=== PATIENT | male | born 1950 | race Hispanic/Latino ===

== ENCOUNTER 2018-08-24 08:11 | Day surgery (SDC) | payer OTHER ==
[2018-08-23 16:08] VITALS: BP 146/78
[2018-08-24] VITALS (17 sets, daily range): BP systolic 105–147; BP diastolic 64–94
[~2018-08-24] VITALS: Ht 182.9 cm; Wt 98.2 kg
[~2018-08-24 08:11] MED LIST: ACET1TAB25 PO; AMLO10TA7 PO; ATOR40TA71 PO; CARV25TA PO; CREON12 PO; GLIP10TA9 PO; LACT1CAP90 PO; LOSA100T58 PO; RANI150C4 PO; SPIR25TA6 PO
[2018-08-24] MEDS: CLINDAMYCIN 900 MG/D5% WATER 50 ML IV SCH ×2 (09:00→12:50)
[2018-08-24] MEDS ORDERED: SODIUM CHLORIDE 0.9% 1000ML 1,000 ML IV ONE (09:30)
[2018-08-24] MEDS ORDERED: ROCURONIUM 10MG/1ML SYR 10 MG/ML ML ONE (09:54)
[2018-08-24] MEDS ORDERED: GLYCOPYRROLATE 1 MG/5 ML SYRINGE ONE (09:54)
[2018-08-24] MEDS ORDERED: LIDOCAINE PF 2% 5ML ABBOJECT ONE (09:54)
[2018-08-24] MEDS ORDERED: NEOSTIGMINE 5MG/5ML SYR IV ONE (09:54)
[2018-08-24] MEDS ORDERED: MIDAZOLAM HCL 1 MG/ML 2ML VIAL ONE (09:54)
[2018-08-24] MEDS ORDERED: PROPOFOL 10 MG/ML 20ML VIAL IV ONE (09:54)
[2018-08-24] MEDS ORDERED: FENTANYL CITRATE PF 50 MCG/1 ML 2ML VIAL ONE (09:55)
[2018-08-24] MEDS ORDERED: EPINEPHRINE 1 MG/ML 30ML VIAL IJ ONE (10:35)
[2018-08-24] MEDS ORDERED: SUCCINYLCHOLINE 200MG/10ML SYR ONE (12:28)
[2018-08-24] MEDS ORDERED: KETOROLAC TROMETHAMINE 30MG/ML ONE (15:12)
[2018-08-24] MEDS ORDERED: ONDANSETRON HCL 4 MG/2 ML VIAL ONE (15:13)
[2018-08-24] MEDS ORDERED: NAPR-1192 PO (15:26)
[2018-08-24] MEDS ORDERED: HYDR-4457 PO (15:26)
[2018-08-24] MEDS ORDERED: CLIN300C3 PO (15:26)
[2018-08-24] MEDS ORDERED: IPRATROPIUM/ALBUTEROL SULFATE 3 ML SOLUTION IH ONE (15:42)
--- NOTE | 2018-08-24 16:42 | NUR ---
RECEIVE PT RECEIVED FROM PACU VIA STRETCHER AWAKE ALERT ORIENTED X3. STABLE. NO COMPLAINTS MADE. NOT IN ANY APPARENT DISTRESS. DRESSINGS X4 TO LEFT SHOULDER DRY AND INTACT, SITE NO BLEEDING NO HEMATOMA NOTED, SLING TO LEFT ARM IN PLACE, SENSATION INTACT, ABLE TO MOVE FINGERS, CAPILLARY REFILLS BRISK. CALL [facility] WITHIN REACH, WILL CALL TO COME IN TO ROOM.
--- NOTE | 2018-08-24 17:17 | NUR ---
DISCHARGE PT DISCHARGED VIA WHEELCHAIR WITH . PT STABLE. NOT IN ANY APPARENT DISTRESS. NO COMPLAINTS MADE. DRESSINGS REMAIN DRY AND INTACT, NO OOZING NO HEMATOMA NOTED TO SITE. LEFT ARM REMAINS THE SAME FROM ARRIVAL TO UNIT, SLING IN PLACE. DISCHARGE INSTRUCTIONS GIVEN AND PT, VERBALIZED UNDERSTANDING.
== END 2018-08-24 17:17 | disposition home or self-care (01) ==
LOC: DAH 08:11
PROVIDERS: ATTEND Orthopaedic Surgery
DX: S46.212A Strain of muscle, fascia and tendon of other parts of biceps, left arm, initial encounter (principal); M75.102 Unspecified rotator cuff tear or rupture of left shoulder, not specified as traumatic; M19.012 Primary osteoarthritis, left shoulder; M75.42 Impingement syndrome of left shoulder; Y93.9 Activity, unspecified; Y99.9 Unspecified external cause status; G89.29 Other chronic pain; I10 Essential (primary) hypertension; K21.9 Gastro-esophageal reflux disease without esophagitis; E11.9 Type 2 diabetes mellitus without complications; E78.00 Pure hypercholesterolemia, unspecified; Z87.891 Personal history of nicotine dependence; Z79.899 Other long term (current) drug therapy; Z88.0 Allergy status to penicillin; X58.XXXA Exposure to other specified factors, initial encounter; Y93.89 Activity, other specified; Y92.89 Other specified places as the place of occurrence of the external cause; Y99.8 Other external cause status; G47.30 Sleep apnea, unspecified
CPT/HCPCS: 23430; 29822; 29824; 29826; 29827; 64415; 82948 ×2; 94640; A4565; A4600; A4649 ×5; A4930; A6204; C1713 ×2; G0168; J0171; J0330; J1885; J2001; J2250; J2405; J2704; J2710; J3010; J3490 ×2; J7030 ×2

== ENCOUNTER 2019-09-09 12:00 | Inpatient (IN) | payer OTHER ==
[~2019-09-09] VITALS: Ht 181.6 cm; Wt 94.4 kg
[2019-09-09 10:03] LABS: BASOPHILS % (AUTO) 0.3 % (0.0-5.0); EOSINOPHILS % (AUTO) 1.7 % (0.0-8.0); HEMATOCRIT 38.1 % (42-54); LYMPHOCYTES % (AUTO) 25.4 % (21.0-51.0); MEAN CORPUSCULAR HEMOGLOBIN 31.3 pg (27.0-33.0); MEAN CORPUSCULAR HGB CONC 33.6 g/dL (32.0-36.0); MEAN CORPUSCULAR VOLUME 93.2 fL (79-99); MONOCYTES % (AUTO) 11.5 % (3.0-13.0); NEUTROPHILS % (AUTO) 60.7 % (40.0-77.0); PLATELET COUNT (AUTO) 179 K/uL (130-400); RED BLOOD CELL COUNT(AUTO) 4.09 MIL/uL (4.50-6.20); RED CELL DISTRIBUTION WIDTH 12.2 % (11.0-15.5); WHITE BLOOD COUNT (AUTO) 7.8 K/uL (4.8-10.8)
[2019-09-09 10:05] LABS: APPEARANCE,URINE Clear (CLEAR); BILIRUBIN,URINE Negative (NEGATIVE); COLOR,URINE Dark Yellow (YELLOW); GLUCOSE, URINE (UA) 250 mg/dL (NEGATIVE); KETONES,URINE Trace mg/dL (NEGATIVE); LEUKOCYTE ESTERASE ,URINE Negative (NEGATIVE); NITRATE,URINE Negative (NEGATIVE); OCCULT BLOOD,URINE Negative (NEGATIVE); PROTEIN,URINE POS 1+ mg/dL (NEGATIVE)
[2019-09-09 10:13] LABS: CREATININE 1.7 mg/dL (0.5-1.5); POTASSIUM 3.9 mmol/L (3.5-5.1)
[2019-09-09 10:14] LABS: INR 0.99 (0.85-1.15); PROTHROMBIN TIME 10.7 SEC (9.6-11.6)
[2019-09-09 10:26] LABS: BACTERIA,URINE Rare /HPF (None Seen); MUCUS,URINE Rare LPF (None Seen); RBC,URINE 0-1 /HPF (0-1); SQUAMOUS EPITHELIAL CELL,UR Rare /HPF (0-2); WBC,URINE 0-1 /HPF (0-1)
[2019-09-09 11:33] VITALS: BP 134/80
[~2019-09-09 12:00] MED LIST changes: -ACET1TAB25 PO; +AMLO-258 PO; -AMLO10TA7 PO; -ATOR40TA71 PO; -CREON12 PO; -LACT1CAP90 PO; -RANI150C4 PO
--- NOTE | 2019-09-10 10:01 | NUR ---
RE: ABNORMAL LABS INFORMED DR RICHARD REGARDING CREAT 1.7, BUN 17. NO NEW ORDERS, OK TO PROCEED WITH SURGERY PER DR RICHARD.
[2019-09-10] MEDS ORDERED: BRIM5DRO4 OU (12:08)
[2019-09-10] MEDS ORDERED: SILD100T PO (12:08)
[2019-09-10] MEDS ORDERED: LATA7.5D OU (12:08)
[2019-09-10] MEDS ORDERED: ATOR40TA69 PO (12:08)
[2019-09-10] MEDS ORDERED: FLUT16H NASAL (12:08)
[2019-09-10] MEDS ORDERED: LEVO50TA11 PO (12:08)
[2019-09-10] MEDS ORDERED: LISI1TAB51 PO (12:08)
[2019-09-10] MEDS ORDERED: CARB15DR OU (12:08)
[2019-09-11] VITALS (21 sets, daily range): BP systolic 101–146; BP diastolic 63–88
[2019-09-11] MEDS ORDERED: SODIUM CHLORIDE 0.9% 1000ML 1,000 ML IV ONE (07:51)
[2019-09-11] MEDS: CLINDAMYCIN 900 MG/D5% WATER 50 ML IV SCH ×3 (08:00→20:56)
--- NOTE | 2019-09-11 09:20 | NUR ---
POTENTIAL FOR INFECTION: CLIPPED RIGHT LEG / RIGHT KNEE PER LINA HAYNES, FOLLOWED BY WIPING WITH MCKENNA: 2% CHLORHEXIDINE GLUCONATE CLOTH PATIENTS PRE-OP SKIN PREP.
[2019-09-11] MEDS ORDERED: CLINDAMYCIN PHOSPHATE 150 MG/ML 6ML VIAL ONE (10:19)
[2019-09-11] MEDS ORDERED: METOCLOPRAMIDE 10 MG/2 ML VIAL ONE (10:20)
[2019-09-11] MEDS ORDERED: ACETAMINOPHEN EXTRA STRENGTH 500 MG TABLET ONE (10:20)
[2019-09-11] MEDS ORDERED: KETOROLAC TROMETHAMINE 15MG/ML ONE (10:20)
[2019-09-11] MEDS ORDERED: CELECOXIB 200 MG CAP ONE (10:20)
--- NOTE | 2019-09-11 10:20 | NUR ---
CONSULT: DR. ALBINO RICHARD MADE AWARE OF PATIENT STOPPED TAKING PLAVIX 75 MG AND ASPIRIN [address] RICHARD SPOKE TO PATIENT AND NO FURTHER ORDERS GIVEN AT PRESENT TIME.
[2019-09-11] MEDS ORDERED: LIDOCAINE PF 2% 5ML ABBOJECT ONE (10:44)
[2019-09-11] MEDS ORDERED: DEXAMETHASONE SOD PHOSPHATE 10MG/ML 1ML VIAL ONE (10:44)
[2019-09-11] MEDS ORDERED: PROPOFOL 10 MG/ML 20ML VIAL IV ONE (10:44)
[2019-09-11] MEDS ORDERED: SUCCINYLCHOLINE 200MG/10ML SYR ONE (10:45)
[2019-09-11] MEDS ORDERED: MIDAZOLAM HCL 1 MG/ML 2ML VIAL ONE (10:45)
[2019-09-11] MEDS ORDERED: ROCURONIUM 10MG/1ML SYR 10 MG/ML ML ONE (10:45)
[2019-09-11] MEDS ORDERED: FENTANYL CITRATE PF 50 MCG/1 ML 2ML VIAL ONE ×2 (10:45→12:41)
[2019-09-11] MEDS ORDERED: ONDANSETRON HCL 4 MG/2 ML VIAL ONE (10:45)
[2019-09-11] MEDS ORDERED: TRANEXAMIC ACID 1000MG/10ML ONE ×2 (10:51→13:32)
[2019-09-11] MEDS ORDERED: ROPIVACAINE 0.5% 5MG/ML 30ML IJ ONE (10:54)
[2019-09-11] MEDS ORDERED: EPHEDRINE SULFATE 50 MG/ML AMPULE ONE (11:05)
[2019-09-11] MEDS ORDERED: PHENYLEPHRINE HCL 10 MG/ML 1ML VIAL IV ONE (11:47)
[2019-09-11] MEDS ORDERED: LIDOCAINE HCL-MPF 1% 2ML VIAL IV PRN (12:30)
[2019-09-11] MEDS ORDERED: TRAMADOL HCL 50 MG TABLET PO PRN (12:30)
[2019-09-11] MEDS ORDERED: OXYCODONE HCL 5 MG TAB PO PRN (12:30)
[2019-09-11] MEDS ORDERED: KETOROLAC TROMETHAMINE 15MG/ML IV PRN (12:30)
[2019-09-11] MEDS ORDERED: DiphenhydrAMINE HCL 50 MG/ML VIAL IVP PRN (12:30)
[2019-09-11] MEDS ORDERED: POTASSIUM CHLORIDE 10% ELIXIR 20 MEQ/15 ML UDCUP PO PRN (12:30)
[2019-09-11] MEDS ORDERED: POTASSIUM CHLORIDE 20MEQ/100ML 100 ML IV PRN (12:30)
[2019-09-11] MEDS ORDERED: FERROUS FUMARATE 324 MG TABLET PO PRN (12:30)
[2019-09-11] MEDS: ACETAMINOPHEN EXTRA STRENGTH 500 MG TABLET PO SCH ×3 (12:30→22:28)
[2019-09-11] MEDS ORDERED: ONDANSETRON HCL 4 MG/2 ML VIAL IVP PRN (12:30)
[2019-09-11] MEDS ORDERED: TEMAZEPAM 15 MG CAPSULE PO PRN (12:30)
[2019-09-11] MEDS ORDERED: KETOROLAC TROMETHAMINE 30MG/ML ONE (12:40)
--- NOTE | 2019-09-11 14:53 | NUR ---
DC PLAN VISITED WITH PATIENT. FIRST TIME SLEEPY POST PROCEDURE. CALLED AND SON NO ANSWER. VISITED WITH PATIENT ABLE TO ANSWER QUESTIONS. LIVES WITH SPOUSE. SEMI INDEPENDENT ABLE TO PERFORM ADL'S. PATIENT HAS WALKER WITH WHEELS, WHEEL CHAIR AND CANE AT HOME. GAVE CONSENT TO TALK TO [facility] AND HOME HEALTH ASSIGNED BY [facility]. EXPLAINED THAT WE WILL ASK FOR ANOTHER WALKER WITH NO WHEELS IN CASE DE DOES NOT APPROVE CAN GET FEET REPLACEMENT AT [facility]. FAXED INFO TO [facility] FOR HOME HEALTH AND DME STANDARD WALKER NO WHEELS AND 3 IN 1 CHAIR. Addendum: 09/11/19 at 1456 by MIRZA HICKS RN CM Amended: Links added.
[2019-09-11] MEDS: SODIUM CHLORIDE 0.9% 1000ML 1,000 ML IV SCH (15:00)
--- NOTE | 2019-09-11 15:08 | NUR ---
DC PLAN SPOKE TO SUMA AT [place] LET HER KNOW OF REFERRAL. Addendum: 09/11/19 at 1508 by MIRZA HICKS RN CM Amended: Links added.
[2019-09-11] MEDS: INSULIN HUMULIN R 100 UNIT/ML 3ML SQ SCH ×3 (15:50→21:00)
[2019-09-11] MEDS ORDERED: CLINDAMYCIN 900 MG/D5% WATER 50 ML IV SCH (17:30)
[2019-09-11] MEDS ORDERED: ASPI-556 PO (17:38)
[2019-09-11] MEDS ORDERED: CLOP75TA14 PO (17:38)
[2019-09-11] MEDS: HYDROCHLOROTHIAZIDE 25 MG TABLET PO SCH (20:51)
[2019-09-11] MEDS: CELECOXIB 200 MG CAP PO SCH (20:52)
[2019-09-11] MEDS: ASPIRIN 81MG TAB.CHEW PO SCH (20:52)
[2019-09-11] MEDS: PREGABALIN 25 MG CAP PO SCH (20:52)
[2019-09-11] MEDS: LISINOPRIL 20 MG TABLET PO SCH (20:52)
[2019-09-11] MEDS: ATORVASTATIN CALCIUM 40 MG TABLET PO SCH (20:52)
[2019-09-11] MEDS: LATANOPROST 2.5 ML DROPS OU SCH (20:53)
[2019-09-11] MEDS: FLUTICASONE PROPIONATE 50MCG/SPRAY 16 GM BOTTLE EN SCH (20:53)
[2019-09-11] MEDS ORDERED: ASPIRIN 81 MG EC TAB PO SCH (21:00)
[2019-09-12] MEDS: SODIUM CHLORIDE 0.9% 1000ML 1,000 ML IV SCH ×2 (00:17→08:05)
[2019-09-12 03:33] VITALS: BP 127/76
[2019-09-12] MEDS: CLINDAMYCIN 900 MG/D5% WATER 50 ML IV SCH ×2 (04:07→05:00)
[2019-09-12 05:21] LABS: HEMATOCRIT 32.3 % (42-54); MEAN CORPUSCULAR HEMOGLOBIN 31.3 pg (27.0-33.0); MEAN CORPUSCULAR HGB CONC 33.4 g/dL (32.0-36.0); MEAN CORPUSCULAR VOLUME 93.6 fL (79-99); RED BLOOD CELL COUNT(AUTO) 3.45 MIL/uL (4.50-6.20); RED CELL DISTRIBUTION WIDTH 12.2 % (11.0-15.5); WHITE BLOOD COUNT (AUTO) 11.7 K/uL (4.8-10.8)
[2019-09-12] MEDS: INSULIN HUMULIN R 100 UNIT/ML 3ML SQ SCH ×4 (05:22→20:33)
[2019-09-12] MEDS: ACETAMINOPHEN EXTRA STRENGTH 500 MG TABLET PO SCH ×3 (05:41→20:25)
[2019-09-12] MEDS: LEVOTHYROXINE 50 MCG TABLET PO SCH (05:41)
[2019-09-12 05:51] LABS: CREATININE 1.3 mg/dL (0.5-1.5); POTASSIUM 3.5 mmol/L (3.5-5.1)
[2019-09-12] MEDS: CALCIUM CARBONATE 500 MG TABLET PO PRN ×2 (05:56→15:18)
[2019-09-12] MEDS: POTASSIUM CHLORIDE 20 MEQ ERTAB PO PRN ×2 (05:56→15:19)
[2019-09-12 08:15] VITALS: BP 132/74
[2019-09-12] MEDS: Carboxymethylcellulose Sodium (Refresh Tears) 1 DROP OU SCH ×2 (09:00→20:33)
[2019-09-12] MEDS: POLYETHYLENE GLYCOL 3350 17 GM POWD.PACK PO SCH (09:00)
[2019-09-12] MEDS: LOSARTAN 100 MG TABLET PO SCH (09:23)
[2019-09-12] MEDS: TAMSULOSIN HCL 0.4 MG CAP.ER.24H PO SCH (09:24)
[2019-09-12] MEDS: CLOPIDOGREL BISULFATE 75 MG TAB PO SCH (09:24)
[2019-09-12] MEDS: AMLODIPINE BESYLATE 5 MG TAB PO SCH (09:24)
[2019-09-12] MEDS: PREGABALIN 25 MG CAP PO SCH ×2 (09:24→20:26)
[2019-09-12] MEDS: CELECOXIB 200 MG CAP PO SCH ×2 (09:24→20:26)
[2019-09-12] MEDS: SPIRONOLACTONE 25 MG TAB PO SCH (09:25)
[2019-09-12] MEDS: CARVEDILOL 25 MG TABLET PO SCH (09:25)
[2019-09-12] MEDS: GLIPIZIDE 5 MG TABLET PO SCH (09:25)
[2019-09-12] MEDS: FAMOTIDINE 20MG TAB 20 MG TAB PO SCH (09:25)
[2019-09-12] MEDS: ASPIRIN 81MG TAB.CHEW PO SCH ×2 (09:26→20:27)
[2019-09-12] MEDS: FLUTICASONE PROPIONATE 50MCG/SPRAY 16 GM BOTTLE EN SCH ×2 (09:27→20:28)
--- NOTE | 2019-09-12 10:38 | NUR ---
CM Note: [facility] pending [facility] and DME approval and assign CM spoke to Emily w/[facility] received request for HH and DME standard walker no wheels and 3 in 1 chair. Currently working on pt. Pt pending approval and assign HH and DME. Aware dcp once approved. Primary nurse aware. CM to cont to follow up.
[2019-09-12 11:32] VITALS: BP 121/79
[2019-09-12 17:43] VITALS: BP 117/64
[2019-09-12] MEDS: OXYCODONE HCL 5 MG TAB PO PRN (18:03)
[2019-09-12 19:11] VITALS: BP 113/62
[2019-09-12] MEDS: LATANOPROST 2.5 ML DROPS OU SCH (20:24)
[2019-09-12] MEDS: BRIMONIDINE TARTRATE 0.2% 5 ML BOTTLE OU SCH (20:24)
[2019-09-12] MEDS: LISINOPRIL 20 MG TABLET PO SCH (20:26)
[2019-09-12] MEDS: ATORVASTATIN CALCIUM 40 MG TABLET PO SCH (20:26)
[2019-09-12] MEDS: HYDROCHLOROTHIAZIDE 25 MG TABLET PO SCH (20:26)
[2019-09-12 23:07] VITALS: BP 100/58
[2019-09-13 04:00] VITALS: BP 121/73
[2019-09-13] MEDS: ACETAMINOPHEN EXTRA STRENGTH 500 MG TABLET PO SCH ×2 (04:39→12:44)
[2019-09-13] MEDS: CLINDAMYCIN 900 MG/D5% WATER 50 ML IV SCH (05:00)
[2019-09-13] MEDS: LEVOTHYROXINE 50 MCG TABLET PO SCH (06:02)
[2019-09-13] MEDS: INSULIN HUMULIN R 100 UNIT/ML 3ML SQ SCH ×3 (07:30→16:30)
[2019-09-13 08:00] VITALS: BP 140/73
[2019-09-13] MEDS: POLYETHYLENE GLYCOL 3350 17 GM POWD.PACK PO SCH (08:36)
[2019-09-13] MEDS: CELECOXIB 200 MG CAP PO SCH (08:36)
[2019-09-13] MEDS: SPIRONOLACTONE 25 MG TAB PO SCH (08:36)
[2019-09-13] MEDS: TAMSULOSIN HCL 0.4 MG CAP.ER.24H PO SCH (08:37)
[2019-09-13] MEDS: ASPIRIN 81MG TAB.CHEW PO SCH (08:37)
[2019-09-13] MEDS: LOSARTAN 100 MG TABLET PO SCH (08:37)
[2019-09-13] MEDS: FAMOTIDINE 20MG TAB 20 MG TAB PO SCH (08:37)
[2019-09-13] MEDS: GLIPIZIDE 5 MG TABLET PO SCH (08:37)
[2019-09-13] MEDS: PREGABALIN 25 MG CAP PO SCH (08:38)
[2019-09-13] MEDS: CLOPIDOGREL BISULFATE 75 MG TAB PO SCH (08:38)
[2019-09-13] MEDS: AMLODIPINE BESYLATE 5 MG TAB PO SCH (08:38)
[2019-09-13] MEDS: CARVEDILOL 25 MG TABLET PO SCH (08:38)
[2019-09-13] MEDS: OXYCODONE HCL 5 MG TAB PO PRN (08:39)
[2019-09-13] MEDS: Carboxymethylcellulose Sodium (Refresh Tears) 1 DROP OU SCH (08:43)
[2019-09-13] MEDS: FLUTICASONE PROPIONATE 50MCG/SPRAY 16 GM BOTTLE EN SCH (08:44)
[2019-09-13] MEDS: BRIMONIDINE TARTRATE 0.2% 5 ML BOTTLE OU SCH ×2 (08:44→14:00)
--- NOTE | 2019-09-13 10:06 | NUR ---
CM Note: [facility] pending approval and assisng HH&DME CM left voicemail to Emily [email or web address] regarding pt pending approval and assisng HH&DME. Awaiting call back. Primary nurse aware. CM to cont to follow up.
--- NOTE | 2019-09-13 11:02 | NUR ---
CM Note: Approved for [employer] and [facility], pending wkr to be delivered. CM spoke to Emily. Pt has approval for [employer] and [facility] for standard walker and 3 in 1 chair. Pending [facility] for DME to be delivered. Primary nurse aware. Pt safe to dc once DME delivered at home. CM to cont to follow up.
[2019-09-13 12:00] VITALS: BP 108/66
--- NOTE | 2019-09-13 14:56 | NUR ---
DONY Note: [facility] delivered equipments CM picked up standard walker no wheels and 3 in 1 chair from [facility]. Dropped off in pt's room. Violet ELLISON aware, will inform Quintin COLLINS. Pt safe to dc today via private car once MD clear. CM to cont to follow up.
[2019-09-13 16:00] VITALS: BP 125/74
[2019-09-13] MEDS ORDERED: ASPI-1005 PO (18:00)
[2019-09-13] MEDS ORDERED: HYDR-4457 PO (18:00)
[2019-09-14] MEDS ORDERED: BISACODYL 10 MG SUPP.RECT RC PRN (12:30)
== END 2019-09-13 18:45 | disposition home health service (06) | DRG 489 ==
LOC: DAHIP 09-11 07:14 → 3CH 09-11 14:02
PROVIDERS: ADMIT Orthopaedic Surgery; ATTEND Orthopaedic Surgery
PROC: 0SUV09Z Supplement Right Knee Joint, Tibial Surface with Liner, Open Approach (ICD-10-PCS; 2019-09-11)
PROC: 0SPC09Z Removal of Liner from Right Knee Joint, Open Approach (ICD-10-PCS; principal; 2019-09-11 11:36)
PROC: 0QRD0JZ Replacement of Right Patella with Synthetic Substitute, Open Approach (ICD-10-PCS; 2019-09-11 11:36)
DX: T84.092A Other mechanical complication of internal right knee prosthesis, initial encounter (principal); M19.90 Unspecified osteoarthritis, unspecified site; E11.9 Type 2 diabetes mellitus without complications; E78.00 Pure hypercholesterolemia, unspecified; H91.90 Unspecified hearing loss, unspecified ear; I10 Essential (primary) hypertension; I25.10 Atherosclerotic heart disease of native coronary artery without angina pectoris; G47.33 Obstructive sleep apnea (adult) (pediatric); E66.9 Obesity, unspecified; Y83.8 Other surgical procedures as the cause of abnormal reaction of the patient, or of later complication, without mention of misadventure at the time of the procedure; Z82.49 Family history of ischemic heart disease and other diseases of the circulatory system; Z83.3 Family history of diabetes mellitus; Z87.891 Personal history of nicotine dependence; Y92.89 Other specified places as the place of occurrence of the external cause; Z88.0 Allergy status to penicillin; Z68.28 Body mass index [BMI] 28.0-28.9, adult
CPT/HCPCS: 36415; 80048; 81001; 82948; 85025; 85027; 85610; 87070; 87076; 87205; 87641; 88300; 88305; 88311; 97039; A4344; G0378; J0330; J1100; J1815; J1885; J2001; J2250; J2370; J2405; J2704; J2765; J2795; J3010; J3490; J7030; J7120

== ENCOUNTER → 2021-07-08 | Outpatient (CLI) | payer OTHER ==
[~2021-07-08] MED LIST changes: +ASPI-1005 PO; +ASPI-556 PO; +ATOR40TA69 PO; +BRIM5DRO4 OU; +CARB15DR OU; +CLOP75TA14 PO; +FLUT16H NASAL; +HYDR-4457 PO; +LATA7.5D OU; +LEVO50TA11 PO; +LISI1TAB51 PO; +SILD100T PO
== END | disposition home or self-care (01) ==
LOC: RAH 09:24
PROVIDERS: ATTEND Otolaryngology
DX: R13.12 Dysphagia, oropharyngeal phase (principal); R13.19 Other dysphagia; R63.30 Feeding difficulties, unspecified
CPT/HCPCS: 74230; 92611